=== PATIENT | male | born 1980 | race Caucasian/White ===

== ENCOUNTER 2018-04-08 11:56 | Observation (INO) | payer MEDICAID, SELFPAY ==
[2018-04-08 12:09] VITALS: BMI 26.8; BMI 26.9
[2018-04-08 12:10] VITALS: BP 143/89; PULSE 82; RESP 20; TEMP 36.6; O2SAT 100
[2018-04-08 12:15] VITALS: BP 143/89; PULSE 82; RESP 20; TEMP 36.6
[2018-04-08] MEDS: Dicyclomine 10 MG Capsule 20 MG PO (13:13)
[2018-04-08] MEDS: chlordiazePOXIDE 25 MG Capsule PO ×2 (13:13→21:37)
[2018-04-08] MEDS: Buprenorphine HCl 2 MG TAB.SUBL SL ×2 (13:13→21:37)
--- NOTE | 2018-04-08 13:24 | PCM.HP.STD ---
Problem List (1) Opiate addiction Status: Acute History of Present Illness Date of Admission: 04/08/18 Chief Complaint: opiate abuse The patient is a 37 year old M with a history of opiate and nicotine addiction. He was admitted for nutrition protocol for opiate detox. He uses about 2 g of heroin IV daily and has been doing so for about 15 years. He tried inpatient detox once but was unsuccessful. He also smokes 2 packs daily and occasionally uses marijuana and drinks alcohol occasionally. He complains of diarrhea and cramping as well as some chills and tremors. He denies any fever, any chest pain, any abdominal pain or vomiting. Review of systems otherwise negative. He has been admitted to be managed for opiate detox. [] Past Medical History Allergies No Known Allergies Allergy (Verified 04/08/18 12:11) Home Medications: Ambulatory Orders Medication Instructions Recorded NK [NK] 04/08/18 Surgical History: no surgical history Psychiatric History: No pertinent psych hx Lives: Alone Smoking Status: Current every day smoker Tobacco Use: Cigarettes Alcohol: Occasional Drugs: Heroin, Marijuana - *Family History Maternal History Items: Heart Disease, Hypertension Paternal History Items: Heart Disease, Hypertension Review of Systems Constitutional: Reports: Chills. Denies: Anorexia, Fever, Night Sweats HEENT: Denies: Head Aches, Sinus Congestion, Sinus Drainage Cardiovascular: Denies: Chest Pain, Chest Tightness, Heaviness, Orthopnea, Palpitations Respiratory: Denies: Cough, Shortness of breath at rest, Sputum production Gastrointestinal: Reports: Diarrhea, - - cramping. Denies: Abdominal Pain, Nausea, Vomiting Genitourinary: Denies: Dysuria Musculoskeletal: Denies: Joint Pain, Joint Tenderness Skin: Denies: Rash, Wounds Neurological: Denies: Numbness, Tingling, Focal weakness Psychiatric: Denies: Anxiety, Depression, Homicidal Ideations, Suicidal Ideations Hematologic/ Lymphatic: Denies: Easy Bruising, Easy Bleeding VTE Information - Inpt Only VTE Present on Admission: No VTE Mechan Device Prophylaxis: None VTE Pharm Prophylaxis ordered?: Yes Patient Problems: Active and Suspected Problems Opiate addiction (Acute) - Physical Exam General: Alert, Oriented x3, Cooperative, No apparent distress HEENT: Atraumatic, PERRLA, EOMI, Normocephalic Oral: Moist Mucosa Neck: Supple, No JVD, Negative Carotid Bruits Lungs: Clear to auscultation, Normal air movement, No rhonchi, No wheeze, No rales Cardiovascular: Regular rate, Regular Rhythm, Normal S1, Normal S2, No murmurs Abdomen: Bowel Sounds Present, Soft, Non Tender, Non-Distended, No Hepato-splenomegaly Extremities: No clubbing, No cyanosis, No edema, Capillary Refill Less than 3 Seconds Skin: No rashes, No breakdown, - - heavily tattooed; no ulcerations seen Musculoskeletal: No Tenderness to Palpation of Joints or Extremities Lymphatic: No Cervical, Supraclavicular, or Inguinal Adenopathy Neurological: Cranial nerves II-XII grossly intact, Motor Exam 5/5 strength throughout Psych/Mental Status: Normal Affect, Appropriate, Alert and oriented to time, place, person, mood and affect Vital Signs Temp Pulse Resp BP Pulse Ox 97.8 F 82 20 H 143/89 H 100 04/08/18 12:15 04/08/18 12:15 04/08/18 12:15 04/08/18 12:15 04/08/18 12:10 Oxygen Delivery Method Room Air Weight: 198 lb Body Mass Index (BMI) 26.8 Assessment/Plan All Active Problems Opiate addiction (Acute) 1. Opiate addiction uses 2gram of heroin daily IV. ALso uses marijuana and alcohol occasionally complains of cramping, diarrhea and tremors admit to [facility] 3 Opiate detox protocol with buprenorphine. Monitor CINA score 2. Nicotine dependence counselled to quit. smokes 1 pack daily since age 9 nicotine patch 21mg daily 3. DVT prophylaxis: heparin Code status: full code This note was generated with [employer] dictation software. It may contain incorrect words, spelling, and punctuation that were not noted in checking the note before signing. Code Visit Inpatient E&M: 14377 Init Hosp L3
--- NOTE | 2018-04-08 13:29 | HP.PCM_ITS ---
Problem List (1) Opiate addiction Status: Acute History of Present Illness Date of Admission: 04/08/18 Chief Complaint: opiate abuse The patient is a 37 year old M with a history of opiate and nicotine addiction. He was admitted for nutrition protocol for opiate detox. He uses about 2 g of heroin IV daily and has been doing so for about 15 years. He tried inpatient detox once but was unsuccessful. He also smokes 2 packs daily and occasionally uses marijuana and drinks alcohol occasionally. He complains of diarrhea and cramping as well as some chills and tremors. He denies any fever, any chest pain, any abdominal pain or vomiting. Review of systems otherwise negative. He has been admitted to be managed for opiate detox. [] Past Medical History Allergies No Known Allergies Allergy (Verified 04/08/18 12:11) Home Medications: Ambulatory Orders Medication Instructions Recorded NK [NK] 04/08/18 Surgical History: no surgical history Psychiatric History: No pertinent psych hx Lives: Alone Smoking Status: Current every day smoker Tobacco Use: Cigarettes Alcohol: Occasional Drugs: Heroin, Marijuana - *Family History Maternal History Items: Heart Disease, Hypertension Paternal History Items: Heart Disease, Hypertension Review of Systems Constitutional: Reports: Chills. Denies: Anorexia, Fever, Night Sweats HEENT: Denies: Head Aches, Sinus Congestion, Sinus Drainage Cardiovascular: Denies: Chest Pain, Chest Tightness, Heaviness, Orthopnea, Palpitations Respiratory: Denies: Cough, Shortness of breath at rest, Sputum production Gastrointestinal: Reports: Diarrhea, - - cramping. Denies: Abdominal Pain, Nausea, Vomiting Genitourinary: Denies: Dysuria Musculoskeletal: Denies: Joint Pain, Joint Tenderness Skin: Denies: Rash, Wounds Neurological: Denies: Numbness, Tingling, Focal weakness Psychiatric: Denies: Anxiety, Depression, Homicidal Ideations, Suicidal Ideations Hematologic/ Lymphatic: Denies: Easy Bruising, Easy Bleeding VTE Information - Inpt Only VTE Present on Admission: No VTE Mechan Device Prophylaxis: None VTE Pharm Prophylaxis ordered?: Yes Patient Problems: Active and Suspected Problems Opiate addiction (Acute) - Physical Exam General: Alert, Oriented x3, Cooperative, No apparent distress HEENT: Atraumatic, PERRLA, EOMI, Normocephalic Oral: Moist Mucosa Neck: Supple, No JVD, Negative Carotid Bruits Lungs: Clear to auscultation, Normal air movement, No rhonchi, No wheeze, No rales Cardiovascular: Regular rate, Regular Rhythm, Normal S1, Normal S2, No murmurs Abdomen: Bowel Sounds Present, Soft, Non Tender, Non-Distended, No Hepato- splenomegaly Extremities: No clubbing, No cyanosis, No edema, Capillary Refill Less than 3 Seconds Skin: No rashes, No breakdown, - - heavily tattooed; no ulcerations seen Musculoskeletal: No Tenderness to Palpation of Joints or Extremities Lymphatic: No Cervical, Supraclavicular, or Inguinal Adenopathy Neurological: Cranial nerves II-XII grossly intact, Motor Exam 5/5 strength throughout Psych/Mental Status: Normal Affect, Appropriate, Alert and oriented to time, place, person, mood and affect Vital Signs Temp Pulse Resp BP Pulse Ox 97.8 F 82 20 H 143/89 H 100 04/08/18 12:15 04/08/18 12:15 04/08/18 12:15 04/08/18 12:15 04/08/18 12:10 Oxygen Delivery Method Room Air Weight: 198 lb Body Mass Index (BMI) 26.8 Assessment/Plan All Active Problems Opiate addiction (Acute) 1. Opiate addiction * uses 2gram of heroin daily IV. ALso uses marijuana and alcohol occasionally * complains of cramping, diarrhea and tremors * admit to [facility] 3 * Opiate detox protocol with buprenorphine. * Monitor CINA score * 2. Nicotine dependence * counselled to quit. * smokes 1 pack daily since age 9 * nicotine patch 21mg daily * 3. DVT prophylaxis: heparin Code status: full code This note was generated with [employer] dictation software. It may contain incorrect words, spelling, and punctuation that were not noted in checking the note before signing. Code Visit Inpatient E&M: 01408 Init Hosp L3
[2018-04-08 14:26] LABS: Absolute Lymphocyte Count 1.15 X10^3/ul (0.83-4.51); Absolute Neutrophil Count 9.9 X10^3/uL (2.0-7.7); Basophil# 0.03 X10^3/uL; Basophil% 0.3 % (0-1); Eosinophil# 0.08 X10^3/uL; Eosinophils% 0.7 % (0-5); Hematocrit 42.6 % (40-54); Hemoglobin 14.1 g/dl (13.0-16.5); Lymphocyte # 1.15 X10^3/ul (4.0); Lymphocyte % 9.9 % (19-41); Mean Corp Hgb Conc 33.1 g/gl (32-36); Mean Corpuscular Hgb 30.7 pg (27.0-32.0); Mean Corpuscular Volume 92.8 fL (80-94); Mean Platelet Vol. 10.2 fl (6.2-12.0); Monocyte# 0.46 X10^3/uL; Monocyte% 3.9 % (0-10); Neutrophil % 84.9 % (47-70); Platelet Count 332 K/mm3 (150-450); RBC Distribution Width SD 47.1 fl (35.1-43.9); Red Blood Count 4.59 M/mm3 (4.6-6.2); White Blood Count 11.7 K/mm3 (4.4-11.0)
[2018-04-08 14:27] LABS: POSITIVE COUNT NO; POSITIVE DIFFERENTIAL NO; POSITIVE MORPHOLOGY NO
[2018-04-08 14:43] LABS: ALB/GLOB Ratio 0.8 RATIO (0.9-2.4); AST(SGOT) 101 U/L (15-37); Alanine Aminotransfer ALT/SGPT 130 U/L (16-61); Albumin, Serum 3.4 g/dL (3.2-5.0); Alkaline Phosphatase 76 U/L (45-117); Anion Gap 7 (5-15); BUN 10 mg/dL (7-18); BUN/Creat Ratio 12.4 RATIO (10-20); Calcium,Total 8.7 mg/dL (8.5-10.1); Chloride 106 mmol/L (98-107); Creatinine, Serum 0.81 mg/dL (0.70-1.30); EST Glomerular Filtration Rate 113 mL/min (>60); Est Glom Filt Rate - Afr Amer 137 mL/min (>60); Estimated Creatinine Clearance 135.72 ml/min; Globulin 4.2 g/dL (2.2-4.2); Glucose 98 mg/dL (74-106); Potassium 4.6 mmol/L (3.5-5.1); Protein, Total 7.6 g/dL (6.4-8.2); Sodium Level 142 mmol/L (136-145)
[2018-04-08 15:09] LABS: Amphetamine Urine VISTA NEGATIVE (<1000 ng/mL); Barbiturate Urine VISTA NEGATIVE (< 200 ng/mL); Benzodiazepine Urine VISTA NEGATIVE (< 200 ng/mL); Cocaine Urine VISTA POSITIVE (< 300 ng/mL); Ecstacy Urine VISTA NEGATIVE (< 500 ng/mL); Methadone Urine VISTA NEGATIVE (< 300 ng/mL); PCP Urine VISTA NEGATIVE (< 25 ng/mL); THC Urine VISTA NEGATIVE (< 50 ng/mL); Vista UDS pH Range 7
--- NOTE | 2018-04-08 15:56 | CHAPLAIN ---
Type of Pastoral Visit _x__ Initial Visit ___ Follow-up Visit ___ On-call Visit ___ General Patient Visit ___ Spiritual Assessment ___ Family Conference ___ Bereavement ___ Rapid Response ___ Code Blue ___ Other (describe below) Pastoral Care Referral From _x__ Patient ___ Family ___ Nurse ___ Physician ___ Stenographic Court Reporter ___ Distillery Worker General ___ Other (describe below) Sacrament/Intervention _x__ Active listening ___ Anointing ___ Cheondoism ___ Bereavement ___ Communion _x__ Alysia exploration ___ _x__ Life review _x__ Prayer ___ Reconciliation ___ Sacrament of Sick _x__ Supportive presence ___ Wedding ___ Other (describe below) Pastoral Comments patient declares reason for return to drugs is bereavement; pt discloses other past experiences that are more of the root issues and by which the drugs are used to cope; pt speaks of mother that is supportive and that his fiancee is also in a rehab at this time; pt has a Confucianist heritage and acknowledges his alysia is real but his behavior is inconsistent; pt is welcoming of further visits with the wallpaper inspector and is open to prayer support
[2018-04-08 17:45] VITALS: BP 130/85; PULSE 75; RESP 18; TEMP 36.6
[2018-04-08] MEDS: hydrOXYzine PAM 25 MG Capsule 50 MG PO (17:45)
[2018-04-08] MEDS: cloNIDine HCl 0.1 MG Tablet PO (17:45)
[2018-04-08 21:26] VITALS: BP 125/76; PULSE 75; RESP 16; TEMP 36.6
[2018-04-09 02:25] VITALS: BP 129/77; PULSE 75; RESP 16; TEMP 36.4
[2018-04-09] MEDS: chlordiazePOXIDE 25 MG Capsule PO ×3 (02:29→16:32)
[2018-04-09] MEDS: cloNIDine HCl 0.1 MG Tablet PO ×4 (02:29→21:20)
[2018-04-09] MEDS: Buprenorphine HCl 2 MG TAB.SUBL SL ×3 (06:19→21:20)
[2018-04-09 08:05] VITALS: BP 122/70; PULSE 67; RESP 16; TEMP 36.4; O2SAT 97
[2018-04-09] MEDS: Enoxaparin 40 MG/0.4 ML Syringe SC (08:07)
--- NOTE | 2018-04-09 09:32 | PCM.PN.HOSP ---
Patient Problems: Active and Suspected Problems Opiate addiction (Acute) Subjective: Patient seen and examined. Admitted and being managed for opiate detox. Complains of fatigue but denies any fever or chills, any cough or chest pain, shortness of breath, abdominal pain or vomiting. Diarrhea has resolved. Review of systems otherwise negative. Labs reviewed. Vitals/I&O's: Vital Signs Temp Pulse Resp BP Pulse Ox 97.5 F L 75 16 129/77 H 100 04/09/18 02:25 04/09/18 02:25 04/09/18 02:25 04/09/18 02:25 04/08/18 12:10 Oxygen Delivery Method Room Air Weight: 198 lb Body Mass Index (BMI) 26.8 Intake and Output for Last 24 Hours 04/07/18 04/08/18 04/09/18 23:59 23:59 23:59 Intake Total 600 / 600 620 / 620 Balance 600 / 600 620 / 620 General: Alert, Oriented x3, Cooperative, No apparent distress HEENT: Atraumatic, PERRLA, EOMI, Normocephalic Oral: Moist Mucosa Neck: Supple, No JVD, Negative Carotid Bruits Lungs: Clear to auscultation, Normal air movement, No rhonchi, No wheeze, No rales Cardiovascular: Regular rate, Regular Rhythm, Normal S1, Normal S2, No murmurs Abdomen: Bowel Sounds Present, Soft, Non Tender, Non-Distended, No Hepato-splenomegaly Extremities: No clubbing, No cyanosis, No edema, Capillary Refill Less than 3 Seconds Skin: No rashes, No breakdown, - - extensive tattoos Musculoskeletal: No Tenderness to Palpation of Joints or Extremities Lymphatic: No Cervical, Supraclavicular, or Inguinal Adenopathy Neurological: Cranial nerves II-XII grossly intact, Motor Exam 5/5 strength throughout Psych/Mental Status: Normal Affect, Appropriate, Alert and oriented to time, place, person, mood and affect Laboratory Results 04/08/18 14:15: WBC 11.7 H, RBC 4.59 L, Hgb 14.1, Hct 42.6, MCV 92.8, MCH 30.7, MCHC 33.1, RDW 14.0, RDW Differential 47.1 H, Plt Count 332, MPV 10.2, Immature Gran % (Auto) 0.300, Neut % (Auto) 84.9 H, Lymph % (Auto) 9.9 L, [place] % (Auto) 3.9, Eos % (Auto) 0.7, Baso % (Auto) 0.3, Absolute Neuts (auto) 9.9 H, Absolute Lymphs (auto) 1.15, Total Counted Not Reportable 04/08/18 14:15: Sodium 142, Potassium 4.6, Chloride 106, Carbon Dioxide 29.0, Anion Gap 7, BUN 10, Creatinine 0.81, Estim Creat Clear Calc 135.72, Est GFR (MDRD) Af Amer 137, Est GFR (MDRD) Non-Af 113, BUN/Creatinine Ratio 12.4, Glucose 98, Calcium 8.7, Magnesium 2.0, Total Bilirubin 0.40, AST 101 H, ALT 130 H, Alkaline Phosphatase 76, Total Protein 7.6, Albumin 3.4, Globulin 4.2, Albumin/Globulin Ratio 0.8 L 04/08/18 14:45: Urine Opiates Screen POSITIVE H, Urine Methadone Screen NEGATIVE, Ur Barbiturates Screen NEGATIVE, Ur Phencyclidine Scrn NEGATIVE, Ur Amphetamines Screen NEGATIVE, U Methamphetamin-MDMA NEGATIVE, U Benzodiazepines Scrn NEGATIVE, Urine Cocaine Screen POSITIVE H, U Cannabinoids Screen NEGATIVE, Ur Drug Screen Comment Current Medications Buprenorphine HCl (Buprenorphine Hcl) 4 mg SL Q8H ASHWINI PRN Reason: Taper Stop: 04/11/18 17:59 Last Admin: 04/09/18 06:19 Dose: 4 mg Chlordiazepoxide (Librium) 25 mg PO Q6H PRN PRN PRN Reason: Moderate-Severe Anxiety Chlordiazepoxide (Librium) 50 mg PO Q8H ASHWINI PRN Reason: Taper Stop: 04/11/18 15:59 Last Admin: 04/09/18 08:11 Dose: 50 mg Clonidine (Catapres) 0.1 mg PO Q2H PRN PRN PRN Reason: Hot/Cold Sweats or Anxiety Last Admin: 04/09/18 08:11 Dose: 0.1 mg Dicyclomine HCl (Bentyl) 20 mg PO Q6H PRN PRN PRN Reason: Abdomnial Discomfort Last Admin: 04/08/18 13:13 Dose: 20 mg Enoxaparin Sodium (Lovenox) 40 mg SC DAILY@1000 ASHWINI Last Admin: 04/09/18 08:07 Dose: 40 mg Hydroxyzine HCl (Vistaril Vial) 50 mg IM Q6H PRN PRN PRN Reason: Breakthrough Anxiety Hydroxyzine Pamoate (Vistaril Pamoate Capsule) 50 mg PO Q6H PRN PRN PRN Reason: Mild Anxiety Last Admin: 04/08/18 17:45 Dose: 50 mg Magnesium Hydroxide (Milk Of Magnesia) 30 ml PO DAILY PRN PRN PRN Reason: Constipation Methocarbamol (Methocarbamol) 750 mg PO Q6H PRN PRN PRN Reason: Muscle Aches Nicotine (Nicoderm Cq (Pbkc)) 21 mg TRANSDERM. DAILY [facility] Last Admin: 04/09/18 08:06 Dose: 21 mg Nutritional Formula (Lactose Free) (Ensure Enlive) 120 ml PO 4X/DAY [facility] Last Admin: 04/09/18 08:10 Dose: 120 ml Pramipexole Dihydrochloride (Mirapex) 0.25 mg PO Q12H PRN PRN PRN Reason: Restless Legs Sodium Chloride () 5 - 30 ml IV UD PRN PRN Reason: SALINE FLUSH Medical Necessity - Tobacco Use Smoking Status: Current every day smoker Tobacco Use: Cigarettes Assessment/Plan All Active Problems Opiate addiction (Acute) 1. Opiate addiction on buprenorphine withdrawal protocol has no complaints on CINA protocol 2. Nicotine dependence counselled to quit. smokes 1 pack daily since age 9 nicotine patch 21mg daily 3. Hep C infection says he has been diagnosed with Hep C, but is treatment naive. counselled about only being able to have treatment once he quits using drugs DVT prophylaxis: heparin. Encourage ambulation Code status: full code This note was generated with [employer] software. It may contain incorrect words, spelling, and punctuation that were not noted in checking the note before signing. Code Visit Inpatient E&M: 54494 Subs Hosp L2
--- NOTE | 2018-04-09 09:36 | PN_ITS ---
Patient Problems: Active and Suspected Problems Opiate addiction (Acute) Subjective: Patient seen and examined. Admitted and being managed for opiate detox. Complains of fatigue but denies any fever or chills, any cough or chest pain, shortness of breath, abdominal pain or vomiting. Diarrhea has resolved. Review of systems otherwise negative. Labs reviewed. Vitals/I&O's: Vital Signs Temp Pulse Resp BP Pulse Ox 97.5 F L 75 16 129/77 H 100 04/09/18 02:25 04/09/18 02:25 04/09/18 02:25 04/09/18 02:25 04/08/18 12:10 Oxygen Delivery Method Room Air Weight: 198 lb Body Mass Index (BMI) 26.8 Intake and Output for Last 24 Hours 04/07/18 04/08/18 04/09/18 23:59 23:59 23:59 Intake Total 600 / 600 620 / 620 Balance 600 / 600 620 / 620 General: Alert, Oriented x3, Cooperative, No apparent distress HEENT: Atraumatic, PERRLA, EOMI, Normocephalic Oral: Moist Mucosa Neck: Supple, No JVD, Negative Carotid Bruits Lungs: Clear to auscultation, Normal air movement, No rhonchi, No wheeze, No rales Cardiovascular: Regular rate, Regular Rhythm, Normal S1, Normal S2, No murmurs Abdomen: Bowel Sounds Present, Soft, Non Tender, Non-Distended, No Hepato- splenomegaly Extremities: No clubbing, No cyanosis, No edema, Capillary Refill Less than 3 Seconds Skin: No rashes, No breakdown, - - extensive tattoos Musculoskeletal: No Tenderness to Palpation of Joints or Extremities Lymphatic: No Cervical, Supraclavicular, or Inguinal Adenopathy Neurological: Cranial nerves II-XII grossly intact, Motor Exam 5/5 strength throughout Psych/Mental Status: Normal Affect, Appropriate, Alert and oriented to time, place, person, mood and affect Laboratory Results 04/08/18 14:15: WBC 11.7 H, RBC 4.59 L, Hgb 14.1, Hct 42.6, MCV 92.8, MCH 30.7, MCHC 33.1, RDW 14.0, RDW Differential 47.1 H, Plt Count 332, MPV 10.2, Immature Gran % (Auto) 0.300, Neut % (Auto) 84.9 H, Lymph % (Auto) 9.9 L, [place] % (Auto) 3.9, Eos % (Auto) 0.7, Baso % (Auto) 0.3, Absolute Neuts (auto) 9.9 H, Absolute Lymphs (auto) 1.15, Total Counted Not Reportable 04/08/18 14:15: Sodium 142, Potassium 4.6, Chloride 106, Carbon Dioxide 29.0, Anion Gap 7, BUN 10, Creatinine 0.81, Estim Creat Clear Calc 135.72, Est GFR ( MDRD) Af Amer 137, Est GFR (MDRD) Non-Af 113, BUN/Creatinine Ratio 12.4, Glucose 98, Calcium 8.7, Magnesium 2.0, Total Bilirubin 0.40, AST 101 H, ALT 130 H, Alkaline Phosphatase 76, Total Protein 7.6, Albumin 3.4, Globulin 4.2, Albumin/Globulin Ratio 0.8 L 04/08/18 14:45: Urine Opiates Screen POSITIVE H, Urine Methadone Screen NEGATIVE , Ur Barbiturates Screen NEGATIVE, Ur Phencyclidine Scrn NEGATIVE, Ur Amphetamines Screen NEGATIVE, U Methamphetamin-MDMA NEGATIVE, U Benzodiazepines Scrn NEGATIVE, Urine Cocaine Screen POSITIVE H, U Cannabinoids Screen NEGATIVE, Ur Drug Screen Comment Current Medications Buprenorphine HCl (Buprenorphine Hcl) 4 mg SL Q8H ASHWINI PRN Reason: Taper Stop: 04/11/18 17:59 Last Admin: 04/09/18 06:19 Dose: 4 mg Chlordiazepoxide (Librium) 25 mg PO Q6H PRN PRN PRN Reason: Moderate-Severe Anxiety Chlordiazepoxide (Librium) 50 mg PO Q8H ASHWINI PRN Reason: Taper Stop: 04/11/18 15:59 Last Admin: 04/09/18 08:11 Dose: 50 mg Clonidine (Catapres) 0.1 mg PO Q2H PRN PRN PRN Reason: Hot/Cold Sweats or Anxiety Last Admin: 04/09/18 08:11 Dose: 0.1 mg Dicyclomine HCl (Bentyl) 20 mg PO Q6H PRN PRN PRN Reason: Abdomnial Discomfort Last Admin: 04/08/18 13:13 Dose: 20 mg Enoxaparin Sodium (Lovenox) 40 mg SC DAILY@1000 ASHWINI Last Admin: 04/09/18 08:07 Dose: 40 mg Hydroxyzine HCl (Vistaril Vial) 50 mg IM Q6H PRN PRN PRN Reason: Breakthrough Anxiety Hydroxyzine Pamoate (Vistaril Pamoate Capsule) 50 mg PO Q6H PRN PRN PRN Reason: Mild Anxiety Last Admin: 04/08/18 17:45 Dose: 50 mg Magnesium Hydroxide (Milk Of Magnesia) 30 ml PO DAILY PRN PRN PRN Reason: Constipation Methocarbamol (Methocarbamol) 750 mg PO Q6H PRN PRN PRN Reason: Muscle Aches Nicotine (Nicoderm Cq (Pbkc)) 21 mg TRANSDERM. DAILY [facility] Last Admin: 04/09/18 08:06 Dose: 21 mg Nutritional Formula (Lactose Free) (Ensure Enlive) 120 ml PO 4X/DAY [facility] Last Admin: 04/09/18 08:10 Dose: 120 ml Pramipexole Dihydrochloride (Mirapex) 0.25 mg PO Q12H PRN PRN PRN Reason: Restless Legs Sodium Chloride () 5 - 30 ml IV UD PRN PRN Reason: SALINE FLUSH Medical Necessity - Tobacco Use Smoking Status: Current every day smoker Tobacco Use: Cigarettes Assessment/Plan All Active Problems Opiate addiction (Acute) 1. Opiate addiction * on buprenorphine withdrawal protocol * has no complaints * on CINA protocol * * 2. Nicotine dependence * counselled to quit. * smokes 1 pack daily since age 9 * nicotine patch 21mg daily * 3. Hep C infection * says he has been diagnosed with Hep C, but is treatment naive. * counselled about only being able to have treatment once he quits using drugs * DVT prophylaxis: heparin. Encourage ambulation Code status: full code This note was generated with [employer] dictation software. It may contain incorrect words, spelling, and punctuation that were not noted in checking the note before signing. Code Visit Inpatient E&M: 37909 Subs Hosp L2
[2018-04-09] MEDS: Methocarbamol 750 MG Tablet PO ×2 (09:44→16:35)
[2018-04-09 14:05] VITALS: BP 121/75; PULSE 70; RESP 18; TEMP 36.6
--- NOTE | 2018-04-09 15:09 | CHAPLAIN ---
Type of Pastoral Visit ___ Initial Visit _x__ Follow-up Visit ___ On-call Visit ___ General Patient Visit ___ Spiritual Assessment ___ Family Conference ___ Bereavement ___ Rapid Response ___ Code Blue ___ Other (describe below) Pastoral Care Referral From _x__ Patient ___ Family ___ Nurse ___ Physician ___ Documentum Consultant ___ Regional Hr Manager ___ Other (describe below) Sacrament/Intervention _x__ Active listening ___ Anointing ___ Rastafarian ___ Bereavement ___ Communion ___ Alysia exploration ___ ___ Life review _x__ Prayer ___ Reconciliation ___ Sacrament of Sick _x__ Supportive presence ___ Wedding ___ Other (describe below) Pastoral Comments patient reports he is going tomorrow to [place] and says he is thankful to go to a Muslim rehab; pt recognizes that he will have daily synagogue there and says he is willing to get this help; pt welcomes prayer and spiritual support
[2018-04-09 16:38] VITALS: BP 124/75; PULSE 81; RESP 20; TEMP 36.6
[2018-04-09 20:36] VITALS: BP 134/76; PULSE 74; RESP 18; TEMP 36.7
[2018-04-10] MEDS: chlordiazePOXIDE 25 MG Capsule PO ×4 (00:14→16:41)
[2018-04-10] MEDS: Buprenorphine HCl 2 MG TAB.SUBL SL ×2 (05:19→17:51)
[2018-04-10 08:00] VITALS: BP 114/77; PULSE 72; RESP 17; TEMP 37; O2SAT 97
[2018-04-10 09:39] VITALS: BP 123/78; PULSE 78; RESP 16; TEMP 36.4
[2018-04-10] MEDS: Enoxaparin 40 MG/0.4 ML Syringe SC (09:52)
--- NOTE | 2018-04-10 10:19 | PCM.PN.HOSP ---
Patient Problems: Active and Suspected Problems Opiate addiction (Acute) Subjective: Patient seen and examined. He was admitted and is being managed for opiate abuse. He has no complaints this morning and feels well. He denies any fever or chills, any cough, any chest pain shortness of breath, abdominal pain, or vomiting. His diarrhea has resolved. Review of systems is otherwise negative. Patient is planning to go to [facility] in [place], [place] upon discharge tomorrow. Vitals/I&O's: Vital Signs Temp Pulse Resp BP Pulse Ox 97.6 F L 78 16 123/78 H 97 04/10/18 09:39 04/10/18 09:39 04/10/18 09:39 04/10/18 09:39 04/10/18 08:00 Oxygen Delivery Method Room Air Weight: 198 lb Body Mass Index (BMI) 26.8 Intake and Output for Last 24 Hours 04/08/18 04/09/18 04/10/18 23:59 23:59 23:59 Intake Total 600 / 600 1070 / 1070 960 / 960 Balance 600 / 600 1070 / 1070 960 / 960 General: Alert, Oriented x3, Cooperative, No apparent distress HEENT: Atraumatic, PERRLA, EOMI, Normocephalic Oral: Moist Mucosa Neck: Supple, No JVD, Negative Carotid Bruits Lungs: Clear to auscultation, Normal air movement, No rhonchi, No wheeze, No rales Cardiovascular: Regular rate, Regular Rhythm, Normal S1, Normal S2, No murmurs Abdomen: Bowel Sounds Present, Soft, Non Tender, Non-Distended, No Hepato-splenomegaly Extremities: No clubbing, No cyanosis, No edema, Capillary Refill Less than 3 Seconds Skin: No rashes, No breakdown, - Musculoskeletal: No Tenderness to Palpation of Joints or Extremities Lymphatic: No Cervical, Supraclavicular, or Inguinal Adenopathy Neurological: Cranial nerves II-XII grossly intact, Motor Exam 5/5 strength throughout Psych/Mental Status: Normal Affect, Appropriate, Alert and oriented to time, place, person, mood and affect Current Medications Buprenorphine HCl (Buprenorphine Hcl) 2 mg SL Q12H ASHWINI PRN Reason: Taper Stop: 04/11/18 17:59 Last Admin: 04/10/18 05:19 Dose: 2 mg Chlordiazepoxide (Librium) 25 mg PO Q6H PRN PRN PRN Reason: Moderate-Severe Anxiety Chlordiazepoxide (Librium) 50 mg PO Q8H ASHWINI PRN Reason: Taper Stop: 04/11/18 15:59 Last Admin: 04/10/18 08:24 Dose: 50 mg Clonidine (Catapres) 0.1 mg PO Q2H PRN PRN PRN Reason: Hot/Cold Sweats or Anxiety Last Admin: 04/09/18 21:20 Dose: 0.1 mg Dicyclomine HCl (Bentyl) 20 mg PO Q6H PRN PRN PRN Reason: Abdomnial Discomfort Last Admin: 04/08/18 13:13 Dose: 20 mg Enoxaparin Sodium (Lovenox) 40 mg SC DAILY@1000 [facility] Last Admin: 04/10/18 09:52 Dose: 40 mg Hydroxyzine HCl (Vistaril Vial) 50 mg IM Q6H PRN PRN PRN Reason: Breakthrough Anxiety Hydroxyzine Pamoate (Vistaril Pamoate Capsule) 50 mg PO Q6H PRN PRN PRN Reason: Mild Anxiety Last Admin: 04/08/18 17:45 Dose: 50 mg Magnesium Hydroxide (Milk Of Magnesia) 30 ml PO DAILY PRN PRN PRN Reason: Constipation Methocarbamol (Methocarbamol) 750 mg PO Q6H PRN PRN PRN Reason: Muscle Aches Last Admin: 04/09/18 16:35 Dose: 750 mg Nicotine (Nicoderm Cq (Pbkc)) 21 mg TRANSDERM. DAILY [facility] Last Admin: 04/10/18 08:25 Dose: 21 mg Nutritional Formula (Lactose Free) (Ensure Enlive) 120 ml PO 4X/DAY [facility] Last Admin: 04/10/18 08:25 Dose: 120 ml Pramipexole Dihydrochloride (Mirapex) 0.25 mg PO Q12H PRN PRN PRN Reason: Restless Legs Sodium Chloride () 5 - 30 ml IV UD PRN PRN Reason: SALINE FLUSH Medical Necessity - Tobacco Use Smoking Status: Current every day smoker Tobacco Use: Cigarettes Assessment/Plan All Active Problems Opiate addiction (Acute) 1. Opiate withdrawal on buprenorphine withdrawal protocol has no complaints on [facility] protocol 2. Nicotine dependence counselled to quit. smokes 1 pack daily since age 9 nicotine patch 21mg daily 3. Hep C infection treatment counselled about only being able to have treatment once he quits using drugs DVT prophylaxis: heparin. Encourage ambulation Code status: full code This note was generated with [employer] software. It may contain incorrect words, spelling, and punctuation that were not noted in checking the note before signing. Code Visit Inpatient E&M: 24726 Subs Hosp L2
--- NOTE | 2018-04-10 10:23 | PN_ITS ---
Patient Problems: Active and Suspected Problems Opiate addiction (Acute) Subjective: Patient seen and examined. He was admitted and is being managed for opiate abuse. He has no complaints this morning and feels well. He denies any fever or chills, any cough, any chest pain shortness of breath, abdominal pain, or vomiting. His diarrhea has resolved. Review of systems is otherwise negative. Patient is planning to go to [facility] in [place], [place] upon discharge tomorrow. Vitals/I&O's: Vital Signs Temp Pulse Resp BP Pulse Ox 97.6 F L 78 16 123/78 H 97 04/10/18 09:39 04/10/18 09:39 04/10/18 09:39 04/10/18 09:39 04/10/18 08:00 Oxygen Delivery Method Room Air Weight: 198 lb Body Mass Index (BMI) 26.8 Intake and Output for Last 24 Hours 04/08/18 04/09/18 04/10/18 23:59 23:59 23:59 Intake Total 600 / 600 1070 / 1070 960 / 960 Balance 600 / 600 1070 / 1070 960 / 960 General: Alert, Oriented x3, Cooperative, No apparent distress HEENT: Atraumatic, PERRLA, EOMI, Normocephalic Oral: Moist Mucosa Neck: Supple, No JVD, Negative Carotid Bruits Lungs: Clear to auscultation, Normal air movement, No rhonchi, No wheeze, No rales Cardiovascular: Regular rate, Regular Rhythm, Normal S1, Normal S2, No murmurs Abdomen: Bowel Sounds Present, Soft, Non Tender, Non-Distended, No Hepato- splenomegaly Extremities: No clubbing, No cyanosis, No edema, Capillary Refill Less than 3 Seconds Skin: No rashes, No breakdown, - Musculoskeletal: No Tenderness to Palpation of Joints or Extremities Lymphatic: No Cervical, Supraclavicular, or Inguinal Adenopathy Neurological: Cranial nerves II-XII grossly intact, Motor Exam 5/5 strength throughout Psych/Mental Status: Normal Affect, Appropriate, Alert and oriented to time, place, person, mood and affect Current Medications Buprenorphine HCl (Buprenorphine Hcl) 2 mg SL Q12H ASHWINI PRN Reason: Taper Stop: 04/11/18 17:59 Last Admin: 04/10/18 05:19 Dose: 2 mg Chlordiazepoxide (Librium) 25 mg PO Q6H PRN PRN PRN Reason: Moderate-Severe Anxiety Chlordiazepoxide (Librium) 50 mg PO Q8H ASHWINI PRN Reason: Taper Stop: 04/11/18 15:59 Last Admin: 04/10/18 08:24 Dose: 50 mg Clonidine (Catapres) 0.1 mg PO Q2H PRN PRN PRN Reason: Hot/Cold Sweats or Anxiety Last Admin: 04/09/18 21:20 Dose: 0.1 mg Dicyclomine HCl (Bentyl) 20 mg PO Q6H PRN PRN PRN Reason: Abdomnial Discomfort Last Admin: 04/08/18 13:13 Dose: 20 mg Enoxaparin Sodium (Lovenox) 40 mg SC DAILY@1000 [facility] Last Admin: 04/10/18 09:52 Dose: 40 mg Hydroxyzine HCl (Vistaril Vial) 50 mg IM Q6H PRN PRN PRN Reason: Breakthrough Anxiety Hydroxyzine Pamoate (Vistaril Pamoate Capsule) 50 mg PO Q6H PRN PRN PRN Reason: Mild Anxiety Last Admin: 04/08/18 17:45 Dose: 50 mg Magnesium Hydroxide (Milk Of Magnesia) 30 ml PO DAILY PRN PRN PRN Reason: Constipation Methocarbamol (Methocarbamol) 750 mg PO Q6H PRN PRN PRN Reason: Muscle Aches Last Admin: 04/09/18 16:35 Dose: 750 mg Nicotine (Nicoderm Cq (Pbkc)) 21 mg TRANSDERM. DAILY [facility] Last Admin: 04/10/18 08:25 Dose: 21 mg Nutritional Formula (Lactose Free) (Ensure Enlive) 120 ml PO 4X/DAY [facility] Last Admin: 04/10/18 08:25 Dose: 120 ml Pramipexole Dihydrochloride (Mirapex) 0.25 mg PO Q12H PRN PRN PRN Reason: Restless Legs Sodium Chloride () 5 - 30 ml IV UD PRN PRN Reason: SALINE FLUSH Medical Necessity - Tobacco Use Smoking Status: Current every day smoker Tobacco Use: Cigarettes Assessment/Plan All Active Problems Opiate addiction (Acute) 1. Opiate withdrawal * on buprenorphine withdrawal protocol * has no complaints * on [facility]INA protocol * * 2. Nicotine dependence * counselled to quit. * smokes 1 pack daily since age 9 * nicotine patch 21mg daily * 3. Hep C infection * treatment * counselled about only being able to have treatment once he quits using drugs * DVT prophylaxis: heparin. Encourage ambulation Code status: full code This note was generated with [employer] software. It may contain incorrect words, spelling, and punctuation that were not noted in checking the note before signing. Code Visit Inpatient E&M: 22882 Subs Hosp L2
[2018-04-10 13:44] VITALS: BP 117/71; PULSE 81; RESP 17; TEMP 36.4
[2018-04-10] MEDS: cloNIDine HCl 0.1 MG Tablet PO (13:55)
[2018-04-10] MEDS: Dicyclomine 10 MG Capsule 20 MG PO (13:55)
[2018-04-10 17:44] VITALS: BP 123/68; PULSE 78; RESP 16; TEMP 36.4
[2018-04-10] MEDS: Methocarbamol 750 MG Tablet PO (18:20)
[2018-04-11] MEDS: chlordiazePOXIDE 25 MG Capsule PO ×2 (00:22→09:03)
[2018-04-11 02:00] VITALS: RESP 16
[2018-04-11 06:00] VITALS: RESP 16
[2018-04-11] MEDS: Buprenorphine HCl 2 MG TAB.SUBL SL (06:45)
[2018-04-11] MEDS: Enoxaparin 40 MG/0.4 ML Syringe SC (09:05)
--- NOTE | 2018-04-11 09:07 | DCINST_ITS ---
- Discharge Diagnoses Current Active Problems: Current Active and Chronic Problems Opiate addiction (Acute) You will use the following diet at home:: Regular Your food should be the consistency of: Regular Discharge Activity: Return to Normal Activity Weight Bearing Status: Full weight bearing Call your doctor if you observe: Fever of 101 or Higher, Shortness of breath, Dizziness, Fainting spells, Chest pain, Increased palpitations (irregular heartbeat), Uncontrolled pain Allergies/Adverse Reactions: Allergies No Known Allergies Allergy (Verified 04/08/18 12:11) Medications to take at Discharge NK [NK] 04/08/18 Primary Care Physician: Care Physician,No Primary [Primary Care Provider] - Please follow up with your Primary Care Physician in: 4-6 weeks. Test Results: Test results from this visit will be discussed in further detail at your follow- up appointment, if applicable.
[2018-04-11 09:09] VITALS: BP 126/83; PULSE 78; RESP 18; TEMP 36.8
--- NOTE | 2018-04-11 13:28 | PCM.DC.SUM ---
Discharge Date and Diagnosis Date of Admission: 04/08/18 Date of Discharge: 04/11/18 - Primary Discharge Diagnosis Acute opioid withdrawal admitted for medical stabilization. Hospital Course and Treatment Operations: None Procedures: None Summary of Care Provided: Patient seen and examined on the day of discharge and appeared to be stable to be discharged home. All over, he is feeling better, having the symptoms of withdrawal. His vital signs are stable. - Physical Exam General: Alert, Oriented x3, Cooperative, No apparent distress. HEENT: Atraumatic, PERRLA, EOMI. Neck: Supple, No JVD, Negative Carotid Bruits, Trachea Midline, Thyroid Normal. Lungs: Clear to auscultation, Normal air movement, No rhonchi, No wheeze, No rales. Cardiovascular: Regular rate, Regular Rhythm, Normal S1, Normal S2, PMI Normal. Abdomen: Bowel Sounds Present, Soft, Non Tender, Non-Distended, No Hepato-splenomegaly. Extremities: No clubbing, No cyanosis, No edema Skin: No rashes, No breakdown Neurological: Neuro grossly intact Vital Signs are stable. Hospital course: The patient is a 37 year old M admitted for acute opioid withdrawal for medical stabilization. He was started on [facility] protocol with tapering course of Subutex. His routine blood work was unremarkable. LFT revealed slightly elevated liver transaminases which is attributed to history of chronic hepatitis C. His urine drug screen was positive for opioids and cocaine. His vital signs were stable. After treatment with [facility] protocol, patient symptoms improved and all over, he feels significantly better. Discharged home in a stable medical condition, discharged on no medications as he has been not taking any medication at home, plan to go to [facility] in [facility], recommended follow-up with PCP in 4-6 weeks. Discharge Activity: Return to Normal Activity Weight Bearing Status: Full weight bearing Call your doctor if you observe: Fever of 101 or Higher, Shortness of breath, Dizziness, Fainting spells, Chest pain, Increased palpitations (irregular heartbeat), Uncontrolled pain Home Medications: Medications to take at Discharge NK [NK] 04/08/18 Primary Care Physician: Care Physician,No Primary [Primary Care Provider] - Please follow up with your Primary Care Physician in: 4-6 weeks. Disposition: Home Minutes spent on discharge:: 24 Patient Condition:: Stable Medical Necessity - Tobacco Use Smoking Status: Current every day smoker Tobacco Use: Cigarettes Meaningful Use Info Meaningful Use Diagnoses (Choose all that apply): None applicable Code Visit Inpatient E&M: 81885 Disch Hosp
--- NOTE | 2018-04-11 13:32 | DS.PCM_ITS ---
Discharge Date and Diagnosis Date of Admission: 04/08/18 Date of Discharge: 04/11/18 - Primary Discharge Diagnosis Acute opioid withdrawal admitted for medical stabilization. Hospital Course and Treatment Operations: None Procedures: None Summary of Care Provided: Patient seen and examined on the day of discharge and appeared to be stable to be discharged home. All over, he is feeling better, having the symptoms of withdrawal. His vital signs are stable. - Physical Exam General: Alert, Oriented x3, Cooperative, No apparent distress. HEENT: Atraumatic, PERRLA, EOMI. Neck: Supple, No JVD, Negative Carotid Bruits, Trachea Midline, Thyroid Normal. Lungs: Clear to auscultation, Normal air movement, No rhonchi, No wheeze, No rales. Cardiovascular: Regular rate, Regular Rhythm, Normal S1, Normal S2, PMI Normal. Abdomen: Bowel Sounds Present, Soft, Non Tender, Non-Distended, No Hepato- splenomegaly. Extremities: No clubbing, No cyanosis, No edema Skin: No rashes, No breakdown Neurological: Neuro grossly intact Vital Signs are stable. Hospital course: The patient is a 37 year old M admitted for acute opioid withdrawal for medical stabilization. He was started on [facility] Vision protocol with tapering course of Subutex. His routine blood work was unremarkable. LFT revealed slightly elevated liver transaminases which is attributed to history of chronic hepatitis C. His urine drug screen was positive for opioids and cocaine. His vital signs were stable. After treatment with [facility] Vision protocol, patient symptoms improved and all over, he feels significantly better. Discharged home in a stable medical condition, discharged on no medications as he has been not taking any medication at home, plan to go to [facility], recommended follow-up with PCP in 4-6 weeks. Discharge Activity: Return to Normal Activity Weight Bearing Status: Full weight bearing Call your doctor if you observe: Fever of 101 or Higher, Shortness of breath, Dizziness, Fainting spells, Chest pain, Increased palpitations (irregular heartbeat), Uncontrolled pain Home Medications: Medications to take at Discharge NK [NK] 04/08/18 Primary Care Physician: Care Physician,No Primary [Primary Care Provider] - Please follow up with your Primary Care Physician in: 4-6 weeks. Disposition: Home Minutes spent on discharge:: 24 Patient Condition:: Stable Medical Necessity - Tobacco Use Smoking Status: Current every day smoker Tobacco Use: Cigarettes Meaningful Use Info Meaningful Use Diagnoses (Choose all that apply): None applicable Code Visit Inpatient E&M: 12914 Disch Hosp
== END 2018-04-11 12:29 | disposition home or self-care (01) | DRG 434 ==
PROVIDERS: Admitting Provider Student in an Organized Health Care Education/Training Program; Referring Provider Student in an Organized Health Care Education/Training Program; Visit Provider Hospitalist
DX: F11.23 Opioid dependence with withdrawal (principal); B18.2 Chronic viral hepatitis C; F17.210 Nicotine dependence, cigarettes, uncomplicated
CPT/HCPCS: 80053; 80307; 83735; 85025; 97802; 99218; 99406; G0378; G0379